=== PATIENT | female | born 1975 | race Hispanic/Latino ===

== ENCOUNTER 2020-12-26 08:19 | Emergency (ER) | payer OTHER ==
[~2020-12-26] VITALS: Ht 170.2 cm; Wt 76.7 kg
[2020-12-26 08:30] VITALS: BP 139/88
[2020-12-26] MEDS ORDERED: KETOROLAC 60 MG VIAL (30MG/ML) IM ONE (11:00)
[2020-12-26] MEDS ORDERED: CYCL10 PO (11:09)
[2020-12-26] MEDS ORDERED: NAPR-1179 PO (11:09)
[2020-12-26] MEDS ORDERED: KETOROLAC 60 MG VIAL (30MG/ML) ONE (11:18)
[2020-12-26 11:45] VITALS: BP 157/92
== END 2020-12-26 11:50 | disposition home or self-care (01) ==
LOC: EDH 08:19
DX: M62.838 Other muscle spasm (principal); M54.2 Cervicalgia; V49.49XA Driver injured in collision with other motor vehicles in traffic accident, initial encounter; Y93.89 Activity, other specified; Y92.89 Other specified places as the place of occurrence of the external cause; Y99.8 Other external cause status
CPT/HCPCS: 72125; 81025; 96372; 99284; J1885

== ENCOUNTER 2021-08-23 15:53 | Emergency (ER) | payer OTHER ==
[~2021-08-23] VITALS: Ht 167.6 cm; Wt 72.6 kg
[~2021-08-23 15:53] MED LIST: CYCL10TA16 PO; NAPR-1179 PO
[2021-08-23 16:12] LABS: APPEARANCE,URINE Clear (CLEAR); BILIRUBIN,URINE Negative (NEGATIVE); COLOR,URINE Yellow (YELLOW); GLUCOSE, URINE (UA) Negative (NEGATIVE); KETONES,URINE Negative (NEGATIVE); LEUKOCYTE ESTERASE ,URINE Negative (NEGATIVE); NITRATE,URINE Negative (NEGATIVE); OCCULT BLOOD,URINE Moderate (NEGATIVE); PROTEIN,URINE Negative (NEGATIVE); UROBILINOGEN,URINE 0.2 mg/dL (0.2-1.0)
[2021-08-23 16:14] LABS: HCG,QUAL RESULT NEGATIVE (NEGATIVE)
[2021-08-23 16:21] LABS: BACTERIA,URINE Rare /HPF (None Seen); MUCUS,URINE None Seen LPF (None Seen); SQUAMOUS EPITHELIAL CELL,UR Rare /HPF (0-2); WBC,URINE 0-1 /HPF (0-1)
[2021-08-23 16:26] LABS: BASOPHILS % (AUTO) 0.4 % (0.0-5.0); EOSINOPHILS % (AUTO) 1.1 % (0.0-8.0); LYMPHOCYTES % (AUTO) 28.5 % (21.0-51.0); MEAN CORPUSCULAR HEMOGLOBIN 30.5 pg (27.0-33.0); MEAN CORPUSCULAR HGB CONC 32.7 g/dL (32.0-36.0); MEAN CORPUSCULAR VOLUME 93.2 fL (79-99); MONOCYTES % (AUTO) 4.7 % (3.0-13.0); NEUTROPHILS % (AUTO) 65.2 % (40.0-77.0); PLATELET COUNT (AUTO) 235 K/uL (130-400); RED BLOOD CELL COUNT(AUTO) 3.97 MIL/uL (4.00-5.50); RED CELL DISTRIBUTION WIDTH 12.2 % (11.0-15.5); WHITE BLOOD COUNT (AUTO) 8.5 K/uL (4.8-10.8)
[2021-08-23 16:34] LABS: CREATININE 0.7 mg/dL (0.5-1.5); POTASSIUM 3.4 mmol/L (3.5-5.1)
[2021-08-23 16:44] LABS: ALBUMIN 3.6 g/dL (3.5-5.0); BILIRUBIN,TOTAL 0.2 mg/dL (0.2-1.0); TOTAL PROTEIN, SERUM 7.2 g/dL (6.0-8.3)
[2021-08-23 17:00] VITALS: BP 138/77
== END 2021-08-23 17:06 | disposition home or self-care (01) ==
LOC: EDH 15:53
DX: N93.9 Abnormal uterine and vaginal bleeding, unspecified (principal)
CPT/HCPCS: 36415; 80053; 81001; 81025; 84702; 85025; 86900; 86901